=== PATIENT | male | born 1985 | race Hispanic/Latino ===

== ENCOUNTER 2017-11-04 10:54 | Emergency (ER) | payer SELFPAY ==
[2017-11-04 11:44] LABS: RAPID GROUP A STREP NEGATIVE (NEGATIVE)
[2017-11-04] MEDS ORDERED: DEXAMETHASONE SOD PHOSPHATE 10MG/ML 1ML VIAL ONE (12:10)
[2017-11-04] MEDS ORDERED: ACETAMINOPHEN EXTRA STRENGTH 500 MG TABLET ONE (12:10)
[2017-11-04] MEDS ORDERED: LIDOCAINE HCL-MPF 1% 2ML VIAL ONE (12:10)
[2017-11-04] MEDS ORDERED: CEFTRIAXONE SODIUM 1 GM ONE (12:10)
== END 2017-11-04 12:37 | disposition home or self-care (01) ==
LOC: EDH 10:54
DX: J09.X2 Influenza due to identified novel influenza A virus with other respiratory manifestations (principal); R50.81 Fever presenting with conditions classified elsewhere; Z72.0 Tobacco use; Z98.890 Other specified postprocedural states
CPT/HCPCS: 87804 ×2; 87880; 96372 ×2; 99284; J0696; J1100; J3490